=== PATIENT | female | born 1955 | race Caucasian/White ===

== ENCOUNTER 2017-05-10 09:01 | Day surgery (SDC) | payer MEDICAID ==
[2017-05-10] MEDS ORDERED: Lactated Ringers 1,000 ML IV SCH (09:30)
[2017-05-10] MEDS ORDERED: Povidone-Iodine 10% Soln 118.25 ML Bottle ONE (10:19)
[2017-05-10] MEDS ORDERED: Dexamethasone 4 MG/ML 5 ML MDV ONE (10:19)
[2017-05-10] MEDS ORDERED: Bupivacaine 0.5% 50 ML MDV ONE (10:19)
[2017-05-10] MEDS ORDERED: ceFAZolin 2 GM in Sodium Chloride 0.9% 50 ML IV ONE (10:30)
[2017-05-10] MEDS ORDERED: ceFAZolin 2 GM in Premix Bag 1 BAG IV ONE (10:30)
[2017-05-10] MEDS ORDERED: Midazolam 1 MG/ML 2 ML SDV ONE (10:57)
[2017-05-10] MEDS ORDERED: Propofol 200 MG/20 ML SDV ONE (10:57)
[2017-05-10] MEDS ORDERED: fentaNYL 100 MCG/2 ML SDV ONE (10:57)
[2017-05-10] MEDS ORDERED: Lidocaine 0.5% 50 ML SDV ONE (10:58)
[2017-05-10] MEDS ORDERED: Acetaminophen/HYDROcodone 325-5 MG Tab PO ONE (13:00)
[2017-05-10 13:02] VITALS: BP 163/79
--- NOTE | 2017-05-10 19:53 | OR ---
DATE OF PROCEDURE: 05/10/2017 PREOPERATIVE DIAGNOSIS: Left carpal tunnel syndrome. POSTOPERATIVE DIAGNOSIS: Left carpal tunnel syndrome. PROCEDURE: Left carpal tunnel release. ANESTHESIA: Byhalia block and conscious sedation. FLUID: Lactated Ringer solution. ESTIMATED BLOOD LOSS: Zero. COMPLICATIONS: None. SPECIMEN: None. DISCHARGE DISPOSITION: Stable to PACU. INDICATIONS FOR PROCEDURE: The patient was seen preoperatively in the clinic. She had findings consistent with carpal tunnel syndrome. She had failed nonoperative treatment. Risks and benefits of the procedure were explained to the patient. Informed consent was obtained preoperatively. DETAILS OF PROCEDURE: The patient was seen preoperatively by myself and the Anesthesia staff in the preoperative holding area where the operative site was marked. She was brought to the operative suite by the Anesthesia staff where Dinah block was administered. Left upper extremity was then prepped and draped in a sterile manner. Time-out was called identifying the correct patient, the correct procedure, the correct site, and antibiotics had been with appropriate period of time. An incision was made just proximal to Zuluaga's cardinal line, in line with the radial border of the 4th digit and carried proximally 1 cm. A self retaining retractor was used, a bipolar cautery was used for hemostasis. The transverse carpal ligament was identified and incised with a #15 blade. I then used Metzenbaum scissors and under direct visualization, I went underneath the transverse carpal ligament distally and proximally and then over it distally and proximally and then divided the transverse carpal ligament as well as the deep fascia proximally and distally under direct visualization using a Ragnell. After this had been accomplished, it was copiously irrigated with saline. We applied a small amount of dexamethasone and then closed it with 3- 0 Vicryl sutures followed by sterile dressing. The patient had the Byhalia block come down at that point in time and then was taken to the PACU in stable condition. Jeremias Urbina DO /[id number]
== END 2017-05-10 13:30 | disposition home or self-care (01) ==
LOC: JP.SDS 09:01
PROVIDERS: ATTEND Orthopaedic Surgery
DX: G56.02 Carpal tunnel syndrome, left upper limb (principal); I10 Essential (primary) hypertension; E03.9 Hypothyroidism, unspecified; K21.9 Gastro-esophageal reflux disease without esophagitis; Z79.899 Other long term (current) drug therapy
CPT/HCPCS: 64721; A9270; J0690; J1100; J2250; J2704; J3010; J7050; J7120

== ENCOUNTER 2019-10-28 05:33 | Day surgery (SDC) | payer MEDICARE ==
[2019-10-28] MEDS ORDERED: Dextrose 5%-Lactated Ringers 1,000 ML IV SCH (06:00)
[2019-10-28] MEDS ORDERED: Glycopyrrolate 0.2 MG/ML 2 ML SDV IVPUSH ONE (07:00)
[2019-10-28] MEDS ORDERED: Midazolam 1 MG/ML 2 ML SDV ONE (07:16)
[2019-10-28] MEDS ORDERED: Propofol 200 MG/20 ML SDV ONE (07:16)
[2019-10-28] MEDS ORDERED: fentaNYL 100 MCG/2 ML SDV ONE (07:16)
[2019-10-28 09:19] VITALS: BP 162/76; PULSE 71
--- NOTE | 2019-11-04 13:16 | OR ---
DATE OF PROCEDURE: 10/28/2019 SURGEON: Luis Daniel Urbina MD PREOPERATIVE DIAGNOSIS: History of Thania fundoplication with present requirement for proton pump inhibitor use. POSTOPERATIVE DIAGNOSIS: History of Thania fundoplication with: 1. 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 2. Mild antral gastritis associated with occasional fundic gland polyps. OPERATIVE PROCEDURE: Esophagogastroduodenoscopy with: 1. Biopsies of antrum for CLOtest. 2. Biopsies of esophagogastric junction for histologic evaluation. ANESTHESIA: IV sedation. INDICATIONS FOR PROCEDURE: The patient is 15 to 20 years status post a Thania fundoplication. At that time, the patient had developed reflux symptoms, which had been refractory to medical management. In recent years, she has had some recurrent need for proton pump inhibitor use, presently is on omeprazole 40 mg a day. She has occasional reflux symptoms and dietary intake and generally is well controlled with present medical management. To evaluate the patient's below problems such as Womack's esophagus, the patient is to undergo a followup endoscopy. Potential risks including bleeding and perforation were discussed, and the patient wishes to proceed. DETAILS OF PROCEDURE: The patient was taken to the operating room and placed in a left lateral decubitus position. IV sedation was administered, after which the upper GI endoscope was passed orally through the length of the esophagus, into the stomach with retroflexion view of the fundus, and thereafter through the pyloric channel, into the junction of the 3rd and 4th portions of the duodenum. Findings included normal hypopharynx, larynx, upper esophageal sphincter, and esophageal body. At the EG junction, the patient was noted to have what appeared to be an intact Thania effect. This was somewhat looser than typically would be seen in the more early postoperative period. This was associated with quite minimal inflammation of the esophagogastric junction. As one passed into the stomach with retroflexion, it did show some degree of paraesophageal hernia adjacent to the esophagogastric junction. The EG junction and Thania fundoplication were in adequate location in the intraabdominal location and the paraesophageal hernia occurred to the left of that with the fundus of the stomach prolapsing up into that area, and this appeared to be well perfused, and by no means indication for surgical intervention. The remainder of the stomach showed some patchy redness in the antrum with also some fundic gland polyps out within the stomach typical for someone on long- term proton pump inhibitor use. The pyloric channel and the duodenum at the junction of the 3rd and 4th portions were otherwise unremarkable. At this point, biopsies were obtained from the antrum and sent for CLOtest for H. pylori. Multiple biopsies were then obtained from the esophagogastric junction, sent for histologic evaluation. Minimal bleeding from the biopsy sites was seen and the procedure then concluded. There were no evident complications. At this point, the plan will be to continue the patient on the present omeprazole dose. One might try limiting that or switching over to H2 blockers over time. Otherwise, if the patient's symptoms become more refractory, then reconsideration for further surgical intervention would be warranted. If the patient does show Womack's esophagus on today's exam, she should be enrolled in a q.2-year endoscopic surveillance regimen. Luis Daniel Urbina MD /[id number]
== END 2019-10-28 09:30 | disposition home or self-care (01) ==
LOC: JP.SDS 05:33
PROVIDERS: ATTEND Surgery
DX: K44.9 Diaphragmatic hernia without obstruction or gangrene (principal); K31.7 Polyp of stomach and duodenum; K29.70 Gastritis, unspecified, without bleeding; K21.0 Gastro-esophageal reflux disease with esophagitis; I10 Essential (primary) hypertension; G47.33 Obstructive sleep apnea (adult) (pediatric); E03.9 Hypothyroidism, unspecified; E66.9 Obesity, unspecified; Z68.32 Body mass index [BMI] 32.0-32.9, adult; Z98.890 Other specified postprocedural states; Z79.899 Other long term (current) drug therapy; Z99.89 Dependence on other enabling machines and devices; Z88.2 Allergy status to sulfonamides
CPT/HCPCS: 87081; 88305; J2250; J2704; J3010; J3490; J7121

== ENCOUNTER 2022-11-17 07:34 | Day surgery (SDC) | payer MEDICARE ==
[~2022-11-17 07:34] MED LIST: Midazolam 1 MG/ML 2 ML SDV ONE; Propofol 200 MG/20 ML SDV ONE; fentaNYL 50 MCG/ML SDV ONE
[2022-11-17] MEDS ORDERED: Dextrose 5%-Lactated Ringers 1,000 ML IV SCH (08:00)
[2022-11-17 10:31] VITALS: BP 126/55; PULSE 52
== END 2022-11-17 10:25 | disposition home or self-care (01) ==
LOC: JP.SDS 07:34
PROVIDERS: ATTEND Surgery
DX: K21.00 Gastro-esophageal reflux disease with esophagitis, without bleeding (principal); K44.9 Diaphragmatic hernia without obstruction or gangrene; G47.33 Obstructive sleep apnea (adult) (pediatric); I10 Essential (primary) hypertension; E78.5 Hyperlipidemia, unspecified; J81.1 Chronic pulmonary edema; Z79.899 Other long term (current) drug therapy; Z88.2 Allergy status to sulfonamides
CPT/HCPCS: 88305; J2250; J2704; J3010; J7121

== ENCOUNTER 2023-01-09 07:15 | Inpatient (IN) | payer MEDICARE ==
[2023-01-09] MEDS ORDERED: Scopolamine 1.5 MG Transdermal Patch TOP ONE (08:00)
[2023-01-09] MEDS ORDERED: Dextrose 5%-Lactated Ringers 1,000 ML IV SCH (08:00)
[2023-01-09] MEDS ORDERED: Scopolamine 1.5 MG Transdermal Patch TOP SCH (08:00)
[2023-01-09] MEDS ORDERED: Ketamine 16 MG in Sodium Chloride 0.9% 19.84 ML IV SCH (08:00)
[2023-01-09] MEDS ORDERED: Ketamine 500 MG/5 ML MDV IV SCH (08:00)
[2023-01-09] MEDS ORDERED: Ropivacaine 40 ML, dexAMETHasone 8 MG, EPINEPHrine 0.4 MG, Sodium Chloride 0.9% 37.6 ML NERVRT SCH ×4 (08:00)
[2023-01-09] MEDS ORDERED: cefOXitin 2 GM in Sodium Chloride 0.9% 50 ML IV ONE (08:00)
[2023-01-09] MEDS ORDERED: Rocuronium 50 MG/5 ML Vial ONE (08:14)
[2023-01-09] MEDS ORDERED: Dexamethasone 4 MG/ML SDV ONE (08:14)
[2023-01-09] MEDS ORDERED: Neostigmine Methylsulfate 1 MG/ML 5 ML Syringe ONE (08:14)
[2023-01-09] MEDS ORDERED: Propofol 200 MG/20 ML SDV ONE (08:14)
[2023-01-09] MEDS ORDERED: Succinylcholine 200 MG/10 ML MDV ONE (08:14)
[2023-01-09] MEDS ORDERED: Glycopyrrolate 0.2 MG/ML 5 ML MDV ONE (08:14)
[2023-01-09] MEDS ORDERED: Ondansetron 4 MG/2 ML SDV ONE (08:14)
[2023-01-09] MEDS ORDERED: fentaNYL 250 MCG/5 ML SDV ONE ×2 (08:15→12:27)
[2023-01-09] MEDS ORDERED: Bupivacaine 0.5% 50 ML MDV ONE (09:01)
[2023-01-09] MEDS ORDERED: Lidocaine 1% with EPINEPHrine 1:100,000 50 ML MDV ONE (09:01)
[2023-01-09] MEDS ORDERED: Meropenem 500 MG SDV ONE (09:01)
[2023-01-09 09:57] LABS: ESTIMATED GFR 80 mL/min (>60)
[2023-01-09] MEDS ORDERED: Naloxone 0.4 MG/ML SDV IV PRN (11:00)
[2023-01-09] MEDS ORDERED: Meropenem 500 MG SDV IRR ONE (13:13)
[2023-01-09] MEDS ORDERED: Linezolid 600 MG/300 ML Premix Bag IRR ONE (13:13)
[2023-01-09] MEDS ORDERED: Lactated Ringers 1,000 ML ONE (13:18)
[2023-01-09] MEDS ORDERED: Labetalol 20 MG/4 ML Syringe ONE (13:32)
[2023-01-09] MEDS: HYDROmorphone/Normal Saline 6 MG/30 ML PCA Vial IV PRN (14:33)
[2023-01-09] MEDS ORDERED: fentaNYL 100 MCG/2 ML SDV ONE (14:42)
[2023-01-09] MEDS ORDERED: Naloxone 0.4 MG/ML SDV ONE (14:55)
[2023-01-09] MEDS ORDERED: Cyclobenzaprine 10 MG Tab PO PRN (15:39)
[2023-01-09] MEDS ORDERED: Metoclopramide 10 MG/2 ML SDV IVPUSH PRN (16:00)
[2023-01-09] MEDS ORDERED: diphenhydrAMINE 50 MG/ML SDV IVPUSH PRN (16:00)
[2023-01-09] MEDS ORDERED: Acetaminophen 500 MG Tab PO PRN (16:00)
[2023-01-09] MEDS ORDERED: Labetalol 20 MG/4 ML Syringe IVPUSH PRN (16:00)
[2023-01-09] MEDS ORDERED: hydrOXYzine HCl 50 MG/ML SDV IM PRN (16:00)
[2023-01-09] MEDS ORDERED: MVI, Adult with Vitamin K 10 ML, Thiamine 200 MG, Zinc/Copper/Manganese/Selenium 1 ML i... IV SCH ×4 (17:00)
[2023-01-09] MEDS: cefOXitin 2 GM in Sodium Chloride 0.9% 50 ML IV SCH ×2 (17:51→23:48)
[2023-01-09] MEDS: Pantoprazole 40 MG Vial IVPUSH SCH (17:52)
[2023-01-09] MEDS: Acetaminophen 500 MG Tab PO SCH (21:59)
[2023-01-09] MEDS: Ketotifen 0.025% Ophth Soln 5 ML Bottle EYEBOTH SCH (22:00)
[2023-01-10] MEDS: Dextrose 5%-Lactated Ringers 1,000 ML IV SCH ×3 (00:41→13:26)
[2023-01-10] MEDS ORDERED: Iopamidol 612 MG/ML 30 ML SDV PO STA (04:13)
[2023-01-10] MEDS: Acetaminophen 500 MG Tab PO SCH ×3 (05:17→20:14)
[2023-01-10] MEDS: cefOXitin 2 GM in Sodium Chloride 0.9% 50 ML IV SCH ×4 (05:17→23:08)
[2023-01-10 05:57] LABS: ESTIMATED GFR 80 mL/min (>60)
[2023-01-10] MEDS: Levothyroxine 100 MCG Tab PO SCH (07:05)
[2023-01-10] MEDS: Levothyroxine 25 MCG Tab PO SCH (07:05)
[2023-01-10] MEDS: Ondansetron 4 MG/2 ML SDV IVPUSH PRN ×2 (07:14→11:43)
[2023-01-10] MEDS: Ketotifen 0.025% Ophth Soln 5 ML Bottle EYEBOTH SCH ×2 (08:11→20:14)
[2023-01-10] MEDS: Sertraline 50 MG Tab PO SCH (08:11)
[2023-01-10] MEDS: Loratadine 10 MG Tab PO SCH (08:11)
[2023-01-10] MEDS: Hydrochlorothiazide/Triamterene 25-37.5 Tab PO SCH (08:11)
[2023-01-10] MEDS: Celecoxib 200 MG Cap PO SCH ×2 (08:11→20:14)
[2023-01-10] MEDS: SCOPOLAMINE PATCH CHECK TOP SCH (08:12)
[2023-01-10] MEDS ORDERED: MVI, Adult with Vitamin K 10 ML, Thiamine 200 MG, Zinc/Copper/Manganese/Selenium 1 ML i... IV SCH ×4 (16:00)
[2023-01-10] MEDS: Pantoprazole 40 MG Vial IVPUSH SCH (17:23)
[2023-01-11] MEDS: Dextrose 5%-Lactated Ringers 1,000 ML IV SCH ×3 (03:30→19:59)
[2023-01-11] MEDS: Acetaminophen 500 MG Tab PO SCH ×3 (03:30→20:10)
[2023-01-11] MEDS: cefOXitin 2 GM in Sodium Chloride 0.9% 50 ML IV SCH ×2 (06:29→13:42)
[2023-01-11] MEDS: HYDROmorphone/Normal Saline 6 MG/30 ML PCA Vial IV PRN (06:33)
[2023-01-11] MEDS ORDERED: Bupivacaine 0.5% 50 ML MDV ONE (06:38)
[2023-01-11] MEDS ORDERED: Meropenem 500 MG SDV ONE (06:38)
[2023-01-11] MEDS ORDERED: Lidocaine 1% with EPINEPHrine 1:100,000 50 ML MDV ONE (06:38)
[2023-01-11] MEDS ORDERED: fentaNYL 100 MCG/2 ML SDV ONE (07:01)
[2023-01-11] MEDS ORDERED: Propofol 200 MG/20 ML SDV ONE (07:01)
[2023-01-11] MEDS ORDERED: Ropivacaine 40 ML, dexAMETHasone 8 MG, EPINEPHrine 0.4 MG, Sodium Chloride 0.9% 37.6 ML NERVRT SCH ×4 (07:15)
[2023-01-11] MEDS ORDERED: Meropenem 500 MG SDV IRR ONE (07:20)
[2023-01-11] MEDS ORDERED: Labetalol 20 MG/4 ML Syringe ONE (07:26)
[2023-01-11] MEDS ORDERED: Bupivacaine 0.5% 50 ML MDV INJECT ONE (07:30)
[2023-01-11] MEDS ORDERED: Lidocaine 1% with EPINEPHrine 1:100,000 20 ML MDV INJECT ONE (07:30)
[2023-01-11] MEDS ORDERED: Furosemide 20 MG/2 ML VIAL IVPUSH ONE (08:30)
[2023-01-11 08:36] LABS: ESTIMATED GFR 69 mL/min (>60)
[2023-01-11] MEDS ORDERED: Cyanocobalamin (Vitamin B12) 1,000 MCG/ML SDV IM ONE (09:00)
[2023-01-11] MEDS: Levothyroxine 100 MCG Tab PO SCH (09:32)
[2023-01-11] MEDS: Levothyroxine 25 MCG Tab PO SCH (09:33)
[2023-01-11] MEDS: Celecoxib 200 MG Cap PO SCH ×2 (09:33→20:10)
[2023-01-11] MEDS: Loratadine 10 MG Tab PO SCH (09:33)
[2023-01-11] MEDS: Hydrochlorothiazide/Triamterene 25-37.5 Tab PO SCH (09:34)
[2023-01-11] MEDS: Sertraline 50 MG Tab PO SCH (09:34)
[2023-01-11] MEDS: Ketotifen 0.025% Ophth Soln 5 ML Bottle EYEBOTH SCH ×2 (09:34→20:10)
[2023-01-11] MEDS: SCOPOLAMINE PATCH CHECK TOP SCH (09:35)
[2023-01-11] MEDS: Diltiazem 100 MG in Sodium Chloride 0.9% 100 ML IV SCH ×3 (09:46→22:09)
[2023-01-11] MEDS: Potassium Chloride 10 MEQ in Premix Bag 1 BAG IV SCH ×4 (09:57→15:43)
[2023-01-11] MEDS: Ondansetron 4 MG/2 ML SDV IVPUSH PRN (13:16)
[2023-01-11 13:30] LABS: TROPONIN I HIGH SENSITIVITY 129.1 pg/mL (<=60.3)
[2023-01-11] MEDS ORDERED: Potassium Chloride 20 MEQ Tab.ER PO ONE (15:30)
[2023-01-11] MEDS: Pantoprazole 40 MG Tab.CR PO SCH (15:45)
[2023-01-12] MEDS: Acetaminophen 500 MG Tab PO SCH ×3 (04:41→20:22)
[2023-01-12] MEDS ORDERED: Furosemide 20 MG/2 ML VIAL ONE (08:42)
[2023-01-12] MEDS ORDERED: Dextrose 5%-Lactated Ringers 1,000 ML IV SCH (08:45)
[2023-01-12] MEDS: Hydrochlorothiazide/Triamterene 25-37.5 Tab PO SCH (08:52)
[2023-01-12] MEDS: HYDROmorphone 2 MG Tab PO PRN ×2 (08:53→13:11)
[2023-01-12] MEDS: Loratadine 10 MG Tab PO SCH (08:53)
[2023-01-12] MEDS: Loperamide 2 MG Cap PO PRN ×3 (08:53→20:23)
[2023-01-12] MEDS: Levothyroxine 100 MCG Tab PO SCH (08:53)
[2023-01-12] MEDS: Sertraline 50 MG Tab PO SCH (08:53)
[2023-01-12] MEDS: Levothyroxine 25 MCG Tab PO SCH (08:54)
[2023-01-12] MEDS: Potassium Chloride 20 MEQ in Premix Bag 1 BAG IV SCH ×3 (08:56→13:00)
[2023-01-12] MEDS: Celecoxib 200 MG Cap PO SCH ×2 (08:56→20:22)
[2023-01-12] MEDS: Ondansetron 4 MG/2 ML SDV IVPUSH PRN ×2 (08:57→13:11)
[2023-01-12] MEDS: Ketotifen 0.025% Ophth Soln 5 ML Bottle EYEBOTH SCH ×2 (08:57→20:23)
[2023-01-12] MEDS ORDERED: Furosemide 20 MG/2 ML VIAL IVPUSH ONE ×2 (09:00→15:00)
[2023-01-12] MEDS ORDERED: Potassium Chloride 20 MEQ Tab.ER PO ONE ×2 (09:00→23:20)
[2023-01-12] MEDS: Pantoprazole 40 MG Tab.CR PO SCH (15:51)
[2023-01-12] MEDS ORDERED: Magnesium Sulfate/Water 2 GM in Premix Bag 1 BAG IV ONE (23:20)
[2023-01-13] MEDS: HYDROmorphone 2 MG Tab PO PRN ×3 (00:27→18:26)
[2023-01-13] MEDS ORDERED: Metoprolol Tartrate 25 MG Tab ONE (01:36)
[2023-01-13] MEDS: Metoprolol Tartrate 25 MG Tab PO SCH ×2 (01:40→08:05)
[2023-01-13] MEDS: Acetaminophen 500 MG Tab PO SCH ×3 (04:16→20:22)
[2023-01-13] MEDS: Loperamide 2 MG Cap PO PRN (04:23)
[2023-01-13 05:12] LABS: ESTIMATED GFR 80 mL/min (>60)
[2023-01-13] MEDS: Levothyroxine 25 MCG Tab PO SCH (07:59)
[2023-01-13] MEDS: Levothyroxine 100 MCG Tab PO SCH (08:01)
[2023-01-13] MEDS: Sertraline 50 MG Tab PO SCH (08:05)
[2023-01-13] MEDS: Hydrochlorothiazide/Triamterene 25-37.5 Tab PO SCH (08:05)
[2023-01-13] MEDS: Celecoxib 200 MG Cap PO SCH ×2 (08:05→20:23)
[2023-01-13] MEDS: Loratadine 10 MG Tab PO SCH (08:05)
[2023-01-13] MEDS: Ketotifen 0.025% Ophth Soln 5 ML Bottle EYEBOTH SCH ×2 (08:06→20:23)
[2023-01-13] MEDS: Ondansetron 4 MG/2 ML SDV IVPUSH PRN (10:20)
[2023-01-13] MEDS: Potassium Phosphates 22.5 MMOLE in Sodium Chloride 0.9% 100 ML IV SCH ×2 (10:22→14:48)
[2023-01-13] MEDS: Metoprolol Succinate 50 MG Tab.ER PO SCH (11:50)
[2023-01-13] MEDS: Pantoprazole 40 MG Tab.CR PO SCH (15:03)
[2023-01-14] MEDS: Acetaminophen 500 MG Tab PO SCH ×3 (03:21→19:40)
[2023-01-14 05:42] LABS: ESTIMATED GFR 94 mL/min (>60)
[2023-01-14] MEDS: Levothyroxine 25 MCG Tab PO SCH (07:58)
[2023-01-14] MEDS: Levothyroxine 100 MCG Tab PO SCH (07:58)
[2023-01-14] MEDS: Sertraline 50 MG Tab PO SCH (08:01)
[2023-01-14] MEDS: Metoprolol Succinate 50 MG Tab.ER PO SCH (08:03)
[2023-01-14] MEDS: Loratadine 10 MG Tab PO SCH (08:05)
[2023-01-14] MEDS: Hydrochlorothiazide/Triamterene 25-37.5 Tab PO SCH (08:05)
[2023-01-14] MEDS: Ketotifen 0.025% Ophth Soln 5 ML Bottle EYEBOTH SCH ×2 (08:06→20:08)
[2023-01-14] MEDS: Celecoxib 200 MG Cap PO SCH ×2 (08:06→20:08)
[2023-01-14] MEDS: HYDROmorphone 2 MG Tab PO PRN (08:23)
[2023-01-14] MEDS ORDERED: Sodium Chloride 0.9% 10 ML Syringe IV PRN (09:36)
[2023-01-14] MEDS: Potassium Chloride 20 MEQ Tab.ER PO SCH ×3 (11:57→16:29)
[2023-01-14] MEDS: Pantoprazole 40 MG Tab.CR PO SCH (16:29)
[2023-01-14] MEDS: Ondansetron 4 MG/2 ML SDV IVPUSH PRN (19:40)
[2023-01-14 22:42] VITALS: PULSE 80
[2023-01-15] MEDS: Acetaminophen 500 MG Tab PO SCH (03:02)
[2023-01-15] MEDS: Levothyroxine 25 MCG Tab PO SCH (07:48)
[2023-01-15] MEDS: Levothyroxine 100 MCG Tab PO SCH (07:49)
[2023-01-15 08:10] VITALS: BP 117/70
[2023-01-15] MEDS: Ketotifen 0.025% Ophth Soln 5 ML Bottle EYEBOTH SCH (08:13)
[2023-01-15] MEDS: Hydrochlorothiazide/Triamterene 25-37.5 Tab PO SCH (08:14)
[2023-01-15] MEDS: Loratadine 10 MG Tab PO SCH (08:14)
[2023-01-15] MEDS: Celecoxib 200 MG Cap PO SCH (08:14)
[2023-01-15] MEDS: Metoprolol Succinate 50 MG Tab.ER PO SCH (08:15)
[2023-01-15] MEDS: Sertraline 50 MG Tab PO SCH (08:16)
== END 2023-01-15 11:05 | disposition home or self-care (01) | DRG 327 ==
LOC: JP.SDSSCHI 08:32 → JP.MS 15:56 → JP.ICU 01-11 08:43 → JP.MS 01-14 10:03
PROVIDERS: ADMIT Surgery; ATTEND Surgery
PROC: 0BUT0JZ Supplement Diaphragm with Synthetic Substitute, Open Approach (ICD-10-PCS; principal; 2023-01-09)
PROC: 0D150ZA Bypass Esophagus to Jejunum, Open Approach (ICD-10-PCS; 2023-01-09)
PROC: 0WQF0ZZ Repair Abdominal Wall, Open Approach (ICD-10-PCS; 2023-01-09)
DX: K44.9 Diaphragmatic hernia without obstruction or gangrene (principal); I97.790 Other intraoperative cardiac functional disturbances during cardiac surgery; K21.9 Gastro-esophageal reflux disease without esophagitis; K31.84 Gastroparesis; I10 Essential (primary) hypertension; G47.33 Obstructive sleep apnea (adult) (pediatric); F32.A Depression, unspecified; J45.909 Unspecified asthma, uncomplicated; E66.9 Obesity, unspecified; E87.6 Hypokalemia; E03.9 Hypothyroidism, unspecified; E78.00 Pure hypercholesterolemia, unspecified; Z79.890 Hormone replacement therapy; Z79.899 Other long term (current) drug therapy; Z88.2 Allergy status to sulfonamides; Z91.048 Other nonmedicinal substance allergy status; Z98.890 Other specified postprocedural states; Z90.710 Acquired absence of both cervix and uterus; Z90.10 Acquired absence of unspecified breast and nipple; Z90.721 Acquired absence of ovaries, unilateral; Z68.30 Body mass index [BMI] 30.0-30.9, adult
CPT/HCPCS: 36415; 36569; 74240; 74240-26; 80048; 80053; 83735; 83880; 84100; 84132; 84443; 84484; 85025; 85027; 88305; 88307; 88341; 88342; 88344; 93005; 93306; A9270-GY; C1713; C1751; C1781; C9113; J0131; J0171; J0330; J0694; J1100; J1170; J1940; J2020; J2185; J2310; J2405; J2704; J2710; J2765; J2795; J3010; J3411; J3420; J3475; J3480; J3490; J7120; J7121; Q9967